=== PATIENT | female | born 1940 | race Caucasian/White ===

== ENCOUNTER 2018-04-20 08:24 | Outpatient (CLI) | payer MEDICARE ==
[2018-04-20 09:25] LABS: Bilirubin Negative (Negative); Blood, Urine Negative (Negative); Clarity Clear (Clear); Glucose, Urine (Dipstick) Negative (Negative); Leukocyte Negative (Negative); Nitrite Negative (Negative); Protein, Urine (Dipstick) Negative (Neg-Trace); Urobilinogen 0.2 mg/dL (0.2-1.0); pH, Urine 5.5 (5.0-9.0)
[2018-04-20 09:39] LABS: ALT (SGPT) 24 U/L (8-55); AST (SGOT) 27 U/L (5-34); Albumin 3.8 g/dL (3.4-4.8); Alkaline Phosphatase 72 U/L (40-150); Anion Gap 14 mmol/L (10-20); BUN (Urea Nitrogen) 13 mg/dL (9.8-20.1); Bilirubin, Total 0.5 mg/dL (0.2-1.2); Calc. Creatinine Clearance 0 mL/min (70-130); Calcium 9.3 mg/dL (7.8-10.44); Carbon Dioxide 23 mmol/L (23-31); Cardiac Risk 2.7 (Less than 4.5); Chloride 107 mmol/L (98-107); Cholesterol 113 mg/dl (< 200 Desired); Estimated GFR-MDRD 70; Globulin 3.2 g/dL (2.4-3.5); Glucose 102 mg/dL (83-110); HDL Cholesterol 42 mg/dL (>60 Neg Risk); LDL Cholesterol, Calculated 39 mg/dL; Potassium 3.9 mmol/L (3.5-5.1); Sodium 140 mmol/L (136-145); Triglycerides 158 mg/dL (Less than 150)
== END 2018-04-20 08:25 | disposition home or self-care (01) ==
LOC: MADLAB 08:24
PROVIDERS: ATTEND Family Medicine
DX: E78.5 Hyperlipidemia, unspecified (principal); I10 Essential (primary) hypertension
CPT/HCPCS: 36415; 80053; 80061; 81003

== ENCOUNTER 2018-12-25 09:40 | Outpatient (CLI) | payer MEDICARE ==
--- NOTE | 2018-12-25 10:32 | RAD ---
TWO VIEWS CHEST: Comparison: None. History: Acute bronchitis. FINDINGS: Two views of the chest shows a normal sized cardiomediastinal silhouette. The patient is status post CABG. There is no evidence of consolidation, mass or pleural effusion. A spinal stimulation device is seen in the thoracic spine. IMPRESSION: No evidence of acute cardiopulmonary disease. POS: [place]
== END 2018-12-25 09:41 | disposition home or self-care (01) ==
LOC: MADRAD 09:40
PROVIDERS: ATTEND Family Medicine
DX: J20.9 Acute bronchitis, unspecified (principal)
CPT/HCPCS: 71046

== ENCOUNTER 2019-03-31 09:50 | Emergency (ER) | payer MEDICARE ==
--- NOTE | 2019-03-31 10:57 | RAD ---
Left foot 3 views: 03/31/2019 COMPARISON: None HISTORY: Fall, trauma, pain FINDINGS: There is enthesophyte formation at the insertion of the Achilles tendon. There is prominent degenerative change at the first metatarsal phalangeal joint. There is corticated fragmentation involving the fourth middle phalanx, which may be related to prior trauma. No acute fracture or evidence of dislocation is seen. IMPRESSION: Chronic findings as detailed above. No displaced fracture or evidence of dislocation is s een.
== END 2019-03-31 11:10 | disposition home or self-care (01) ==
LOC: MADERS 09:50
DX: S90.32XA Contusion of left foot, initial encounter (principal); I10 Essential (primary) hypertension; F17.210 Nicotine dependence, cigarettes, uncomplicated; Z79.82 Long term (current) use of aspirin; Z79.899 Other long term (current) drug therapy; W18.30XA Fall on same level, unspecified, initial encounter

== ENCOUNTER 2019-09-06 09:50 | Outpatient (CLI) | payer MEDICARE ==
[2019-09-06 11:09] LABS: ALT (SGPT) 42 U/L (8-55); AST (SGOT) 34 U/L (5-34); Albumin 3.8 g/dL (3.4-4.8); Alkaline Phosphatase 90 U/L (40-110); Anion Gap 13 mmol/L (10-20); BUN (Urea Nitrogen) 11 mg/dL (9.8-20.1); Bilirubin, Total 0.5 mg/dL (0.2-1.2); Calc. Creatinine Clearance 0 mL/min (70-130); Calcium 9.2 mg/dL (7.8-10.44); Carbon Dioxide 25 mmol/L (23-31); Chloride 105 mmol/L (98-107); Cholesterol 171 mg/dl (< 200 Desired); Estimated GFR-MDRD 66; Globulin 3.4 g/dL (2.4-3.5); Glucose 106 mg/dL (83-110); HDL Cholesterol 43 mg/dL (>60 Neg Risk); LDL Cholesterol, Calculated 101 mg/dL; Potassium 4.4 mmol/L (3.5-5.1); Protein, Total 7.2 g/dL (6.0-8.3); Sodium 139 mmol/L (136-145); Triglycerides 136 mg/dL (Less than 150)
== END 2019-09-06 09:51 | disposition home or self-care (01) ==
LOC: MADLAB 09:50
PROVIDERS: ATTEND Nurse Practitioner Family
DX: I25.10 Atherosclerotic heart disease of native coronary artery without angina pectoris (principal); I35.0 Nonrheumatic aortic (valve) stenosis; E78.00 Pure hypercholesterolemia, unspecified
CPT/HCPCS: 36415; 80053; 80061

== ENCOUNTER 2020-05-17 17:43 | Emergency (ER) | payer MEDICARE ==
[2020-05-17 18:26] LABS: #Basophils 0.1 thou/uL (0.0-0.2); #Eosinphils 0.1 thou/uL (0.0-0.7); #Lymphocytes 2.2 thou/uL (1.20-3.40); #Monocytes 1.2 thou/uL (0.11-0.59); #Neutrophils 11.2 thou/uL (1.40-6.50); %Basophils 0.9 % (0.0-1.0); %Eosinophils 0.4 % (0.0-10.0); %Neutrophils 75.6 % (42.0-75.0); Hemoglobin 15.2 g/dL (12.0-16.0); Mean Corpuscular HGB CONC 32.3 g/dL (32.0-36.0); Mean Corpuscular Hemoglobin 29.7 pg (27.0-31.0); Mean Corpuscular Volume 92.2 fL (78.0-98.0); Mean Platelet Volume 8.2 fL (7.4-10.4); Platelet Count 190 thou/uL (130-400); RBC Distribution Width 11.2 % (11.5-14.5); White Blood Cell (WBC) Count 14.8 thou/uL (4.8-10.8)
[2020-05-17 18:41] LABS: ALT (SGPT) 20 U/L (8-55); AST (SGOT) 23 U/L (5-34); Alkaline Phosphatase 79 U/L (40-110); Anion Gap 15 mmol/L (10-20); BUN (Urea Nitrogen) 16 mg/dL (9.8-20.1); Bilirubin, Total 1.2 mg/dL (0.2-1.2); CK (CPK) 112 U/L (29-168); Calc. Creatinine Clearance 0 mL/min (70-130); Calcium 9.2 mg/dL (7.8-10.44); Carbon Dioxide 24 mmol/L (23-31); Chloride 101 mmol/L (98-107); Estimated GFR-MDRD 64; Globulin 3.7 g/dL (2.4-3.5); Glucose 115 mg/dL (83-110); Protein, Total 7.7 g/dL (6.0-8.3); Sodium 136 mmol/L (136-145)
--- NOTE | 2020-05-17 18:55 | RAD ---
Exam: Chest one view HISTORY:Fever. Comparison: 07/30/2016, 12/25/2018 FINDINGS: Cardiac silhouette:Upper normal cardiac silhouette. Stable dorsal column stimulators and sternotomy w ires. Aorta: Atherosclerosis. Pulmonary vessels: Normal Costophrenic angles: Clear LUNGS: Hyperinflation. Chronic lung parenchymal changes. No consolidation or mass. Pneumothorax: None Osseous abnormalities: None IMPRESSION: 1. Hyperinflation. COPD. Chronic lung parenchymal changes. 2. Atherosclerosis.
[2020-05-17] MEDS ORDERED: Cefepime 2 GM VIAL ONE (18:56)
[2020-05-17] MEDS ORDERED: Sodium Chloride 0.9% 100 ML ONE (18:57)
[2020-05-17 19:25] LABS: Bilirubin Negative (Negative); Blood, Urine Trace (Negative); Glucose, Urine (Dipstick) Negative (Negative); Ketone, Urine Negative (Negative); Leukocyte Trace (Negative); Nitrite Negative (Negative); Protein, Urine (Dipstick) Negative (Neg-Trace); Specific Gravity, Urine 1.015 (1.005-1.030); Urobilinogen 0.2 mg/dL (Less than 2)
[2020-05-17 19:26] LABS: Clarity Hazy (Clear)
[2020-05-17 19:27] LABS: Bacteria/HPF Rare-Few HPF (None Seen); RBC/HPF 0-3 HPF (0-3); Squamous Epithelial 0-3 HPF (0-3); WBC/HPF 0-3 HPF (0-3)
[2020-05-17] MEDS ORDERED: Acetaminophen 500 MG TAB ONE (19:39)
[2020-05-17] MEDS ORDERED: Vancomycin 1.5 GRAM/300 ML BAG ONE (19:47)
== END 2020-05-17 20:17 | disposition short-term general hospital (02) ==
LOC: MADERS 17:43
DX: L03.116 Cellulitis of left lower limb (principal); R50.9 Fever, unspecified; I25.10 Atherosclerotic heart disease of native coronary artery without angina pectoris; E78.5 Hyperlipidemia, unspecified; E78.00 Pure hypercholesterolemia, unspecified; I10 Essential (primary) hypertension; M41.9 Scoliosis, unspecified; F17.210 Nicotine dependence, cigarettes, uncomplicated; Z79.82 Long term (current) use of aspirin; Z79.899 Other long term (current) drug therapy
CPT/HCPCS: 36415; 71045; 80053; 81003; 81015; 82550; 83605; 85025; 87040; 87086; 96365; 96375; J0692; J3370; J3490

== ENCOUNTER 2021-10-16 11:24 | Emergency (ER) | payer MEDICARE ==
[2021-10-16] MEDS ORDERED: Boostrix 0.5 ML (Tdap) VIAL ONE (12:23)
== END 2021-10-16 13:15 | disposition home or self-care (01) ==
LOC: MADERS 11:24
DX: S61.551A Open bite of right wrist, initial encounter (principal); L03.113 Cellulitis of right upper limb; J44.1 Chronic obstructive pulmonary disease with (acute) exacerbation; I10 Essential (primary) hypertension; I25.10 Atherosclerotic heart disease of native coronary artery without angina pectoris; E78.5 Hyperlipidemia, unspecified; E78.00 Pure hypercholesterolemia, unspecified; M41.86 Other forms of scoliosis, lumbar region; F17.210 Nicotine dependence, cigarettes, uncomplicated; W55.01XA Bitten by cat, initial encounter; Z23 Encounter for immunization; Z79.82 Long term (current) use of aspirin; Z79.899 Other long term (current) drug therapy
CPT/HCPCS: 71046; 90471; 90715; 96372; J1040; J7620

== ENCOUNTER 2022-05-22 13:17 | Emergency (ER) | payer MEDICARE ==
[2022-05-22] MEDS ORDERED: Orphenadrine Citrate 60 MG/2 ML VIAL ONE (14:34)
== END 2022-05-22 15:01 | disposition home or self-care (01) ==
LOC: MADERS 13:17
DX: M54.41 Lumbago with sciatica, right side (principal); I10 Essential (primary) hypertension; I25.10 Atherosclerotic heart disease of native coronary artery without angina pectoris; E78.5 Hyperlipidemia, unspecified; E78.00 Pure hypercholesterolemia, unspecified; F17.210 Nicotine dependence, cigarettes, uncomplicated; M41.9 Scoliosis, unspecified; Z79.82 Long term (current) use of aspirin; Z79.899 Other long term (current) drug therapy
CPT/HCPCS: 96372; 99283; J2360

== ENCOUNTER 2022-08-07 13:25 | Outpatient (CLI) | payer MEDICARE ==
[2022-08-07 13:37] LABS: Bilirubin Negative (Negative); Blood, Urine Negative (Negative); Clarity Clear (Clear); Glucose, Urine (Dipstick) Negative (Negative); Ketone, Urine Negative (Negative); Leukocyte Negative (Negative); Nitrite Negative (Negative); Protein, Urine (Dipstick) Negative (Neg-Trace); Specific Gravity, Urine 1.015 (1.005-1.030); Urobilinogen 0.2 mg/dL (Less than 2); pH, Urine 6.5 (5.0-9.0)
[2022-08-07 13:44] LABS: Bacteria/HPF None Seen HPF (None Seen); Other Microscopic Description C&S SET UP; RBC/HPF 0-3 HPF (0-3); Squamous Epithelial 0-3 HPF (0-3); WBC/HPF 0-3 HPF (0-3)
== END 2022-08-07 13:26 | disposition home or self-care (01) ==
LOC: MADLABBHPM 13:25 → MADLAB 13:26
PROVIDERS: ATTEND Family Medicine
DX: N39.46 Mixed incontinence (principal)
CPT/HCPCS: 81001; 87086

== ENCOUNTER 2023-12-08 15:51 | Emergency (ER) | payer MEDICARE ==
[2023-12-08] MEDS ORDERED: Ipratropium/Albuterol 3 ML NEB ONE (16:02)
[2023-12-08] MEDS ORDERED: Albuterol 2.5 MG (0.5 mL) NEB ONE ×3 (16:02→17:23)
[2023-12-08] MEDS ORDERED: Ipratropium Bromide 2.5 ml Neb ONE ×2 (16:38→17:24)
[2023-12-08] MEDS ORDERED: Albuterol 2.5 MG (3 mL) NEB ONE (16:38)
[2023-12-08] MEDS ORDERED: Azithromycin 500 MG VIAL ONE (16:39)
[2023-12-08] MEDS ORDERED: Sodium Chloride 0.9% 250 ML 250 ML ONE (16:39)
[2023-12-08] MEDS ORDERED: methylPREDNISolone Sod Succ/PF 125 MG/2 ML VIAL ONE (16:39)
[2023-12-08 16:41] LABS: #Basophils 0.1 thou/uL (0.0-0.2); #Monocytes 0.6 thou/uL (0.11-0.59); #Neutrophils 4.9 thou/uL (1.40-6.50); %Basophils 1.2 % (0.0-1.0); %Eosinophils 0.4 % (0.0-10.0); %Lymphocytes 25.8 % (21.0-51.0); %Monocytes 8.3 % (0.0-10.0); %Neutrophils 64.3 % (42.0-75.0); Hematocrit 46.7 % (36.0-47.0); Hemoglobin 15.4 g/dL (12.0-16.0); Mean Corpuscular Hemoglobin 31.4 pg (27.0-31.0); Mean Corpuscular Volume 95.2 fl (78.0-98.0); Mean Platelet Volume 10.6 fL (7.4-10.4); Platelet Count 115 10x3/uL (130-400); RBC Distribution Width 11.9 % (11.5-14.5); Red Blood Cell (RBC) Count 4.91 mill/uL (4.20-5.40); White Blood Cell (WBC) Count 7.7 10x3/uL (4.8-10.8)
[2023-12-08 16:42] LABS: Platelet Adequacy Comment Appears Decreased
[2023-12-08 16:45] LABS: ALT (SGPT) 33 U/L (8-55); AST (SGOT) 35 U/L (5-34); Albumin 4.1 g/dL (3.4-4.8); Alkaline Phosphatase 94 U/L (40-110); Anion Gap 14 mmol/L (10-20); BUN (Urea Nitrogen) 12 mg/dL (9.8-20.1); Bilirubin, Total 0.7 mg/dL (0.2-1.2); Calc. Creatinine Clearance 0 mL/min (70-130); Calcium 9.1 mg/dL (7.8-10.44); Carbon Dioxide 29 mmol/L (23-31); Chloride 99 mmol/L (98-107); Estimated GFR 66; Globulin 3.6 g/dL (2.4-3.5); Glucose 95 mg/dL (83-110); Potassium 3.8 mmol/L (3.5-5.1); Protein, Total 7.7 g/dL (5.8-8.1); Sodium 138 mmol/L (136-145)
[2023-12-08] MEDS ORDERED: Furosemide 40 MG (4 mL) VIAL ONE (17:24)
[2023-12-08 18:17] LABS: Troponin I 0.021 ng/mL (< 0.028)
[2023-12-08] MEDS ORDERED: Amiodarone 200 MG TAB PO SCH (21:00)
[2023-12-08 21:10] LABS: Troponin I 0.017 ng/mL (< 0.028)
[2023-12-09] MEDS ORDERED: Furosemide 40 MG (4 mL) VIAL ONE ×2 (01:11→12:28)
[2023-12-09] MEDS ORDERED: Ipratropium/Albuterol 3 ML NEB ONE ×3 (01:26→10:52)
[2023-12-09] MEDS ORDERED: methylPREDNISolone Sod Succ/PF 125 MG/2 ML VIAL ONE (10:21)
[2023-12-09] MEDS ORDERED: Amiodarone 200 MG TAB PO SCH (11:30)
[2023-12-09] MEDS ORDERED: diphenhydrAMINE 50 MG/ML VIAL ONE (11:35)
[2023-12-09] MEDS ORDERED: Famotidine/PF 20 mg/2ml Vial ONE (11:36)
== END 2023-12-09 14:14 | disposition short-term general hospital (02) ==
LOC: MADERS 15:51
DX: I11.0 Hypertensive heart disease with heart failure (principal); I50.9 Heart failure, unspecified; J96.00 Acute respiratory failure, unspecified whether with hypoxia or hypercapnia; I49.3 Ventricular premature depolarization; E78.00 Pure hypercholesterolemia, unspecified; I25.10 Atherosclerotic heart disease of native coronary artery without angina pectoris; F17.210 Nicotine dependence, cigarettes, uncomplicated; Z79.899 Other long term (current) drug therapy
CPT/HCPCS: 71046; 80053; 83605; 83880; 84484 ×2; 85025; 93005; 94760; J0456; 85379; 96365; 96375; 96376; J1200; J1940; J2930; J7050; J7611; J7620; S0028

== ENCOUNTER 2023-12-24 09:21 | Outpatient (CLI) | payer MEDICARE ==
[2023-12-24 10:17] LABS: #Basophils 0.1 thou/uL (0.0-0.2); #Eosinphils 0.1 thou/uL (0.0-0.7); #Lymphocytes 2.2 thou/uL (1.20-3.40); #Monocytes 0.7 thou/uL (0.11-0.59); #Neutrophils 7.8 thou/uL (1.40-6.50); %Eosinophils 1.3 % (0.0-10.0); %Lymphocytes 20.1 % (21.0-51.0); %Monocytes 6.2 % (0.0-10.0); %Neutrophils 71.4 % (42.0-75.0); Hematocrit 46.6 % (36.0-47.0); Hemoglobin 15.3 g/dL (12.0-16.0); Mean Corpuscular HGB CONC 32.9 g/dL (32.0-36.0); Mean Corpuscular Hemoglobin 30.7 pg (27.0-31.0); Mean Corpuscular Volume 93.5 fl (78.0-98.0); Mean Platelet Volume 9.2 fL (7.4-10.4); Platelet Count 139 10x3/uL (130-400); Red Blood Cell (RBC) Count 4.99 mill/uL (4.20-5.40)
[2023-12-24 10:31] LABS: Anion Gap 16 mmol/L (10-20); BUN (Urea Nitrogen) 16 mg/dL (9.8-20.1); Calc. Creatinine Clearance 0 mL/min (70-130); Carbon Dioxide 22 mmol/L (23-31); Chloride 102 mmol/L (98-107); Potassium 4.6 mmol/L (3.5-5.1); Sodium 135 mmol/L (136-145)
[2023-12-24 10:32] LABS: Calcium 9.1 mg/dL (7.8-10.44); Estimated GFR 52; Glucose 105 mg/dL (83-110)
== END 2023-12-24 09:22 | disposition home or self-care (01) ==
LOC: MADLAB 09:21
PROVIDERS: ATTEND Family Medicine
DX: J45.901 Unspecified asthma with (acute) exacerbation (principal); I50.1 Left ventricular failure, unspecified; J90 Pleural effusion, not elsewhere classified; I95.2 Hypotension due to drugs
CPT/HCPCS: 36415; 71046; 80048; 85025

== ENCOUNTER 2025-06-08 08:55 | Outpatient (CLI) | payer MEDICARE ==
[2025-06-08 09:59] LABS: #Basophils 0.1 thou/uL (0.0-0.2); #Eosinophils 0.3 thou/uL (0.0-0.7); #Lymphocytes 2.3 thou/uL (1.20-3.40); #Monocytes 0.7 thou/uL (0.11-0.59); #Neutrophils 4.6 thou/uL (1.40-6.50); %Basophils 1.3 % (0.0-1.0); %Eosinophils 3.6 % (0.0-10.0); %Lymphocytes 28.3 % (21.0-51.0); %Monocytes 8.6 % (0.0-10.0); %Neutrophils 58.1 % (42.0-75.0); Hematocrit 47.9 % (36.0-47.0); Hemoglobin 15.7 g/dL (12.0-16.0); Mean Corpuscular Hemoglobin 30.9 pg (27.0-31.0); Mean Corpuscular Volume 94.4 fl (78.0-98.0); Platelet Count 174 10x3/uL (130-400); Red Blood Cell (RBC) Count 5.08 mill/uL (4.20-5.40); White Blood Cell (WBC) Count 8.0 10x3/uL (4.8-10.8)
[2025-06-08 10:24] LABS: ALT (SGPT) 16 U/L (Less than 34); AST (SGOT) 27 U/L (11-34); Albumin 3.6 g/dL (3.1-4.5); Alkaline Phosphatase 97 U/L (40-110); Anion Gap 15 mmol/L (10-20); BUN (Urea Nitrogen) 14 mg/dL (9.8-20.1); Bilirubin, Total 0.5 mg/dL (0.3-1.2); Calc. Creatinine Clearance 0 mL/min (70-130); Calcium 9.1 mg/dL (7.8-10.44); Carbon Dioxide 23 mmol/L (23-31); Cardiac Risk 3.0 (Less than 4.5); Chloride 108 mmol/L (98-107); Cholesterol 93 mg/dl (< 200 Desired); Globulin 3.2 g/dL (2.4-3.5); Glucose 109 mg/dL (83-110); HDL Cholesterol 31 mg/dL (>60 Neg Risk); LDL Cholesterol, Calculated 29 mg/dL; Potassium 4.1 mmol/L (3.5-5.1); Sodium 142 mmol/L (136-145); Triglycerides 163 mg/dL (Less than 150)
== END 2025-06-08 08:56 | disposition home or self-care (01) ==
LOC: MADLAB 08:55
PROVIDERS: ATTEND Nurse Practitioner Family
DX: I25.10 Atherosclerotic heart disease of native coronary artery without angina pectoris (principal)
CPT/HCPCS: 36415; 80053; 80061; 85025

== ENCOUNTER 2025-09-08 13:06 | Emergency (ER) | payer MEDICARE | END 2025-09-08 14:40 | disposition home or self-care (01) | LOC: MADERS 13:06 | DX: S80.01XA Contusion of right knee, initial encounter (principal); M19.021 Primary osteoarthritis, right elbow; M16.9 Osteoarthritis of hip, unspecified; M17.9 Osteoarthritis of knee, unspecified; J44.9 Chronic obstructive pulmonary disease, unspecified; I25.10 Atherosclerotic heart disease of native coronary artery without angina pectoris; I10 Essential (primary) hypertension; F17.210 Nicotine dependence, cigarettes, uncomplicated; W07.XXXA Fall from chair, initial encounter | CPT/HCPCS: 99283 ==